=== PATIENT | female | born 1965 | race Asian ===

== ENCOUNTER 2022-02-15 17:51 | Emergency (ER) | payer MEDICAID ==
[~2022-02-15] VITALS: Ht 165.1 cm; Wt 68.0 kg
[2022-02-15] MEDS ORDERED: TETRACAINE HCL 0.5% OPHT DROP 2 ML BOTTLE ONE ×2 (18:11→19:03)
[2022-02-15] MEDS ORDERED: LISI20TA30 PO (18:16)
--- NOTE | 2022-02-15 18:17 | NUR ---
PT IS IN ROOM #2B. DR MAN EVALUATED THE PT. PT REFUSED EYE AQUITY EXAM, BECAUSE OF PAIN. DR MAN NOTIFIED.
--- NOTE | 2022-02-15 18:20 | NUR ---
Dr Ibarraov able to put Tetracaine drops in Minh eyes.
[2022-02-15] MEDS: TETRACAINE HCL 0.5% OPHT DROP 2 ML BOTTLE OP ONE ×2 (18:22→19:06)
[2022-02-15] MEDS ORDERED: OXYCODONE/APAP 5-325 MG TABLET ONE (18:30)
[2022-02-15] MEDS: OXYCODONE/APAP 5-325 MG TABLET PO ONE (18:40)
--- NOTE | 2022-02-15 18:40 | NUR ---
Placed Cecilio lenses in both eyes and started irrigation. Pt tolorated well.
[2022-02-15] MEDS ORDERED: OXYC-128 PO (18:48)
[2022-02-15] MEDS ORDERED: FLUORESCEIN SODIUM 1 MG STRIP ONE ×2 (18:58→19:00)
[2022-02-15] MEDS: FLUORESCEIN SODIUM 1 MG STRIP OP ONE (19:04)
--- NOTE | 2022-02-15 19:09 | NUR ---
Hands off report given to ramon Sorenson, caustic cresylate shift superintendent.
--- NOTE | 2022-02-15 19:40 | NUR ---
OFELIA at bedside discussing dispo with pt and aftercare with pt. ED spent considerable amt of time at bedside educating pt, approx 15 min. Diet and overall health was also discussed as well as DC instuctions. EDMD informed pt that she will be DCed soon after the dc instructions are printed up. Pt preparing to be DC mike accompanied by friend. VLAD
--- NOTE | 2022-02-15 20:11 | NUR ---
Pt given detailed Dc instuctions and med info. Pt confirmed understanding of aftercare. VSS, PE WNL, NAD. Pt states that she is starting to feel the irritationin her eyes coming back due to the topical wearing off. I advised that she get her scribt filled tricia so that she doesnt experience much discomfort, she agreed. Pt signed out and was wheeled out to her friends car in the [facility] [place]. Pt placed in the car without incident and was very thankful for services rendered. No s/sx of distress present.
[2022-02-15 20:18] VITALS: BP 145/85
== END 2022-02-15 20:19 | disposition home or self-care (01) ==
LOC: ER 17:54
DX: H18.821 Corneal disorder due to contact lens, right eye (principal); T49.0X1A Poisoning by local antifungal, anti-infective and anti-inflammatory drugs, accidental (unintentional), initial encounter; H10.213 Acute toxic conjunctivitis, bilateral; Y92.039 Unspecified place in apartment as the place of occurrence of the external cause; I10 Essential (primary) hypertension; Z79.899 Other long term (current) drug therapy
CPT/HCPCS: A4663